=== PATIENT | male | born 1970 | race Hispanic/Latino ===

== ENCOUNTER 2020-07-20 13:00 | Outpatient (CLI) | payer OTHER ==
--- NOTE | 2020-07-21 08:13 | Magnetic Resonance Report ---
MRI RIGHT KNEE WITHOUT CONTRAST INDICATION / CLINICAL INFORMATION: LT SHOULDER AND RT KNEE PAIN. TECHNIQUE: Multiplanar, multisequence MR images were obtained. No contrast used. COMPARISON: None available. FINDINGS: ACL: Mucoid degeneration but no acute abnormality. PCL: No significant abnormality. DISTAL QUADRICEPS TENDON: No significant abnormality. PATELLAR TENDON: No significant abnormality. MEDIAL MENISCUS: Vertical joint degenerative tear of the posterior horn of the medial meniscus best s een on sagittal PD image 21. Small inferior flap tear of the body of the medial meniscus best seen on coronal PD images 12-16. LATERAL MENISCUS: No significant abnormality. POSTEROLATERAL CORNER: No significant abnormality. MCL: No significant abnormality. LCL: No significant abnormality. DISTAL IT BAND: No significant abnormality. PATELLOFEMORAL ALIGNMENT: No significant abnormality. ARTICULAR CARTILAGE: Mild patellofemoral chondrosis. JOINT SPACE: No significant joint effusion or synovitis. No significant popliteal cyst. No intra-david cular bodies. BONES: No significant bone marrow edema. No fracture. No osseous lesion. SOFT TISSUES: No significant abnormality. ADDITIONAL FINDINGS: None. IMPRESSION: 1. Vertical tear of the posterior horn of the medial meniscus. 2. Inferior flap tear of the body of the medial meniscus. 3. Mild patellofemoral chondrosis. Signer Name: Jorge Clayton MD Signed: 07/21/2020 8:08 AM Workstation Name: [id number]
--- NOTE | 2020-07-21 08:15 | Magnetic Resonance Report ---
MRI LEFT SHOULDER WITHOUT CONTRAST INDICATION / CLINICAL INFORMATION: Left shoulder pain. TECHNIQUE: Multiplanar, multisequence MR images were obtained. No contrast used. COMPARISON: None available. FINDINGS: SUPRASPINATUS: Tendinosis but no tear. INFRASPINATUS: No significant abnormality. SUBSCAPULARIS: Tendinosis but no tear. BICEPS TENDON, LONG HEAD: Tendinosis and peritendinitis. GLENOID LABRUM: Degenerative signal but no discrete tear. ARTICULAR CARTILAGE: No significant abnormality. JOINT SPACE AND CAPSULE: Small joint effusion and mild synovitis. ACROMION and A.C. JOINT: Mild to moderate hypertrophic degenerative arthrosis with inferior osteophyt es which encroach upon the rotator cuff. SUBACROMIAL/SUBDELTOID SPACE: No significant abnormality. BONES: No significant bone marrow edema. No fracture. No osseous lesion. SOFT TISSUES: No significant abnormality. ADDITIONAL FINDINGS: None. IMPRESSION: 1. Rotator cuff tendinosis but no tear. 2. Biceps tendinosis and peritendinitis. 3. Small joint effusion with mild synovitis. Signer Name: Jorge Clayton MD Signed: 07/21/2020 8:10 AM Workstation Name: [id number]
== END 2020-07-20 13:01 | disposition home or self-care (01) ==
LOC: MRI 13:00
DX: S83.241A Other tear of medial meniscus, current injury, right knee, initial encounter (principal); M65.812 Other synovitis and tenosynovitis, left shoulder; M75.22 Bicipital tendinitis, left shoulder; M75.102 Unspecified rotator cuff tear or rupture of left shoulder, not specified as traumatic; M25.512 Pain in left shoulder; M77.8 Other enthesopathies, not elsewhere classified; M25.412 Effusion, left shoulder; X58.XXXA Exposure to other specified factors, initial encounter; Y93.89 Activity, other specified; Y92.89 Other specified places as the place of occurrence of the external cause; Y99.8 Other external cause status
CPT/HCPCS: 73721

== ENCOUNTER 2020-11-30 08:21 | Outpatient (CLI) | payer OTHER ==
--- NOTE | 2020-11-30 09:11 | XRay Report ---
CHEST 2 VIEWS INDICATION: TB EXPOSURE.. COMPARISON: 08/12/2018 FINDINGS: Support devices: None. Heart: Within normal limits. Lungs/pleura: No acute air space or interstitial disease. No pneumothorax. Additional findings: No evidence for adenopathy, cavitating lesion or pleural effusion. IMPRESSION: Unremarkable chest films. No change since 08/12/2018. Signer Name: Bryant Florentino Jr, MD Signed: 11/30/2020 9:06 AM Workstation Name: [id number]
== END 2020-11-30 08:22 | disposition home or self-care (01) ==
LOC: XRAY 08:21
PROVIDERS: ATTEND Emergency Medicine
DX: R76.11 Nonspecific reaction to tuberculin skin test without active tuberculosis (principal)
CPT/HCPCS: 71046